=== PATIENT | male | born 1995 | race Caucasian/White ===

== ENCOUNTER 2023-12-12 09:25 | Outpatient (CLI) | payer OTHER ==
--- NOTE | 2023-12-12 15:08 | XRAY Report ---
PROCEDURE: Knee 3V LT INDICATIONS: LEFT KNEE JOINT PAIN TECHNIQUE: 3 views of the knee(s) were acquired. COMPARISON: None. FINDINGS: Bones: No fractures or dislocations. Normal alignment. Joint spaces are maintained. No suspicious b bc lesions. Soft tissues: Small knee joint effusion. No suspicious soft tissue calcifications or masses. IMPRESSION: No acute bony abnormality. If there remains a high clinical concern for fracture, consider cross-sect ional imaging now. If pain persists, consider repeat x-ray in 10-14 days or cross-sectional imaging. Reviewed by: Rd Hodgson MD on 12/12/2023 3:07 PM PDT Approved by: Rd Hodgson MD on 12/12/2023 3:07 PM PDT Station ID: [id number]
== END 2023-12-12 09:26 | disposition home or self-care (01) ==
LOC: DI 09:25
PROVIDERS: ATTEND Family Medicine
DX: M25.562 Pain in left knee (principal)